=== PATIENT | male | born 1995 | race Caucasian/White ===

== ENCOUNTER 2018-09-09 17:08 | Emergency (ER) | payer OTHER ==
[~2018-09-09] VITALS: Ht 182.9 cm; Wt 104.8 kg
[2018-09-09 18:01] LABS: BASO # 0.1 10^3/uL (0.0-0.2); BASO % 0.7 % (0.0-1.0); EOS % 0.5 % (0.0-3.0); HEMATOCRIT 45.8 % (42.0-52.0); HEMOGLOBIN 16.3 g/dl (13.5-17.5); LYMPH # 2.7 10^3/uL (1.5-6.5); LYMPH % 31.4 % (24.0-44.0); MEAN CORPUSCULAR HEMOGLOBIN 31.6 pg (27.0-33.0); MEAN CORPUSCULAR HGB CONC 35.6 g/dl (32.0-36.5); MEAN CORPUSCULAR VOLUME 88.8 fl (80.0-96.0); MONO # 0.5 10^3/uL (0.0-0.8); MONO % 5.8 % (0.0-5.0); NEUTROPHILS # 5.2 10^3/uL (1.8-7.7); NEUTROPHILS % 61.1 % (36.0-66.0); PLATELET COUNT, AUTOMATED 291 10^3/uL (150-450); RED BLOOD COUNT 5.16 10^6/uL (4.30-6.10); WHITE BLOOD COUNT 8.5 10^3/uL (4.0-10.0)
--- NOTE | 2018-09-09 18:05 | REP ---
Clinical: Shortness of breath and chest pain. Technique: PA and lateral. Findings: Diffuse coarsened interstitial markings are most compatible with bronchitis. Trace left basilar atelectasis cannot be excluded. No discrete focal consolidation, effusion, or pneumothorax. Mediastinum and cardiac silhouette are normal. Skeletal structures are intact. Impression: Findings suggest bronchitis and possible left basilar atelectasis. No focal consolidation. Electronically Signed by Kanu Delatorre MD 09/09/2018 05:56 P
[2018-09-09] MEDS ORDERED: ALBUTEROL SULFATE 2.5 MG/0.5 ML INH NEB SOLN NEB ONE (18:15)
[2018-09-09] MEDS ORDERED: methylPREDNISolone INJ 125 MG/2 ML VIAL (J2930) IV ONE (18:15)
[2018-09-09 18:24] LABS: BLOOD UREA NITROGEN 11 MG/DL (7-18); CALCIUM LEVEL 8.9 MG/DL (8.5-10.1); CARBON DIOXIDE LEVEL 27 MEQ/L (21-32); CHLORIDE LEVEL 111 MEQ/L (98-107); CPK CREATINE PHOSPHOKINASE 146 U/L (39-308); CREATININE FOR GFR 1.23 MG/DL (0.70-1.30); GLOMERULAR FILTRATION RATE > 60.0 (>60); GLUCOSE, FASTING 101 MG/DL (70-100); MB/CK RELATIVE INDEX 0.75 (< OR =4); POTASSIUM SERUM 4.1 MEQ/L (3.5-5.1); SODIUM LEVEL 145 MEQ/L (136-145); TROPONIN I < 0.02 NG/ML (< 0.10)
[2018-09-09 18:55] LABS: INFLUENZA A AMPLIFICATION NEGATIVE (NEGATIVE); INFLUENZA B AMPLIFICATION NEGATIVE (NEGATIVE)
[2018-09-09] MEDS ORDERED: ZITHTAB PO (19:50)
[2018-09-09 20:24] VITALS: BP 162/90
--- NOTE | 2018-09-10 08:45 | ECGEPIP ---
Stationary ECG Study [facility] - ED Test Date: 2018-09-09 Pat Name: SHAMAR HALL Department: Room: - Gender: M Service Dispatcher: : 1995 Requested By: Vandana Livingston Order Number: [id number] Reading MD: Vandana Livingston Measurements Intervals [place] Rate: 84 P: 3 NE: 153 QRS: 19 QRSD: 93 T: 46 QT: 365 QTc: 431 Interpretive Statements SINUS RHYTHM INCOMPLETE RIGHT BUNDLE BRANCH BLOCK NO PRIOR FOR COMPARISON Electronically Signed On 09-10-2018 8:45:13 EST by Vandana Livingston
== END 2018-09-09 20:25 | disposition home or self-care (01) ==
LOC: M ED 17:08
DX: J20.9 Acute bronchitis, unspecified (principal); R03.0 Elevated blood-pressure reading, without diagnosis of hypertension; I45.10 Unspecified right bundle-branch block; R06.4 Hyperventilation; F17.220 Nicotine dependence, chewing tobacco, uncomplicated
CPT/HCPCS: 71046; 80048; 82550; 82553; 84484; 85025; 85379; 87502; 93005; 94640; 96374; 99284; J2930

== ENCOUNTER 2018-09-10 19:52 | Emergency (ER) | payer OTHER ==
[~2018-09-10] VITALS: Ht 182.9 cm; Wt 100.0 kg
[~2018-09-10 19:52] MED LIST: ZITHTAB PO
[2018-09-10] MEDS ORDERED: LORazepam 2 MG/ML VIAL (J2060) IV STA (20:22)
[2018-09-10] MEDS ORDERED: ISOVUE-370 76% 100ML VIAL (Q9967) As Ordered ONE (20:28)
[2018-09-10 20:39] LABS: VENOUS BASE EXCESS -0.9 (-2.0-2.0); VENOUS HCO3 23.1 MEQ/L (23.0-27.0); VENOUS O2 SATURATION 90.6 % (60.0-80.0); VENOUS PARTIAL PRESSURE CO2 36.9 mmHg (38.0-50.0); VENOUS PARTIAL PRESSURE O2 55.8 mmHg (30.0-50.0); VENOUS PH 7.415 UNITS (7.330-7.430); VENOUS STANDARD HCO3 23.5 MEQ/L; VENOUS TOTAL CO2 24.3 MEQ/L (24.0-28.0)
[2018-09-10 20:51] LABS: BLOOD UREA NITROGEN 12 MG/DL (7-18); CALCIUM LEVEL 8.9 MG/DL (8.5-10.1); CARBON DIOXIDE LEVEL 24 MEQ/L (21-32); CHLORIDE LEVEL 108 MEQ/L (98-107); CK-MB VALUE MASS < 1.0 NG/ML (<3.6); CPK CREATINE PHOSPHOKINASE 118 U/L (39-308); CREATININE FOR GFR 1.34 MG/DL (0.70-1.30); GLOMERULAR FILTRATION RATE > 60.0 (>60); GLUCOSE, FASTING 91 MG/DL (70-100); HEMATOCRIT 46.8 % (42.0-52.0); HEMOGLOBIN 16.6 g/dl (13.5-17.5); MB/CK RELATIVE INDEX 0.85 (< OR =4); MEAN CORPUSCULAR HEMOGLOBIN 31.3 pg (27.0-33.0); MEAN CORPUSCULAR HGB CONC 35.5 g/dl (32.0-36.5); MEAN CORPUSCULAR VOLUME 88.1 fl (80.0-96.0); PLATELET COUNT, AUTOMATED 330 10^3/uL (150-450); POTASSIUM SERUM 3.5 MEQ/L (3.5-5.1); RED BLOOD COUNT 5.31 10^6/uL (4.30-6.10); SODIUM LEVEL 143 MEQ/L (136-145); TROPONIN I < 0.02 NG/ML (< 0.10); WHITE BLOOD COUNT 18.4 10^3/uL (4.0-10.0)
[2018-09-10 20:59] LABS: ATYPICAL LYMPH 6 % (0-5); LYMPHOCYTES 31 % (16-52); MONOCYTES 4 % (0-8); NEUTROPHILS 59 % (35-75); PLATELET ESTIMATE NORMAL (NORMAL)
[2018-09-10] MEDS ORDERED: NITROGLYCERIN 0.4 MG SUBL TABLET SL STA (21:22)
[2018-09-10] MEDS ORDERED: NITROGLYCERIN 0.4 MG SUBL TABLET As Ordered ONE (21:23)
--- NOTE | 2018-09-10 21:39 | REPVR ---
EXAM: CT Angiography Chest With Contrast EXAM DATE/TIME: 09/10/2018 8:39 PM CLINICAL HISTORY: 23 years old, male; Pain; Chest pain; Type not specified; Additional info: R/O pe TECHNIQUE: Axial computed tomographic angiography images of the chest with intravenous contrast using CT angiography protocol. All CT scans at this facility use at least one of these dose optimization techniques: automated exposure control; mA and/or kV adjustment per patient size (includes targeted exams where dose is matched to clinical indication); or iterative reconstruction. Coronal and sagittal reformatted images were created and reviewed. MIP reconstructed images were created and reviewed. CONTRAST: 75 ml of ISOVUE 370 administered intravenously. COMPARISON: CR Chest, 2 view PA, Lat 09/09/2018 5:46 PM FINDINGS: Pulmonary arteries: There is opacification of the pulmonary arteries with no evidence of pulmonary embolus. Aorta: There is opacification of the aorta which appears intact. Lungs: Clear lungs. Pleural space: Normal. No pneumothorax. No pleural effusion. Heart: The heart is normal in size. There is no evidence of pericardial effusion. Lymph nodes: There is no evidence of mediastinal or hilar lymphadenopathy. Bones/joints: No evidence of bony abnormality. Soft tissues: Unremarkable. IMPRESSION: No evidence of pulmonary embolus. Electronically signed by: Adolph Acevedo On 09/10/2018 21:38:54 PM
[2018-09-11] VITALS: BP 121/71
--- NOTE | 2018-09-11 07:25 | ECGEPIP ---
Stationary ECG Study [facility] - ED Test Date: 2018-09-10 Pat Name: SHAMAR HALL Department: Room: - Gender: M [employer] Mate: philip : 1995 Requested By: SHEA Escalona Order Number: [id number] Reading MD: Vandana Livingston Measurements Intervals [place] Rate: 77 P: 0 ME: 164 QRS: 16 QRSD: 90 T: 14 QT: 367 QTc: 417 Interpretive Statements SINUS RHYTHM DECREASED RATE 09/09/18 Electronically Signed On 09-11-2018 7:25:10 EST by Vandana Livingston
== END 2018-09-11 00:17 | disposition home or self-care (01) ==
LOC: M ED 19:52
DX: F41.1 Generalized anxiety disorder (principal); I10 Essential (primary) hypertension; I45.19 Other right bundle-branch block; F17.220 Nicotine dependence, chewing tobacco, uncomplicated
CPT/HCPCS: 71275; 80048; 82550; 82553; 82803; 84484; 85025; 93005; 93041; 96374; 99285; J2060; Q9967